=== PATIENT | female | born 1945 | race Caucasian/White ===

== ENCOUNTER 2021-03-02 16:37 | Emergency (ER) | payer MEDICARE, BC, SELFPAY ==
--- NOTE | ~2021-03-02 | XR_ITS ---
EXAMINATION: XR foot LT min 3V, XR ankle LT min 3V DATE: 03/02/2021 17:17 INDICATION: Lateral left foot and ankle pain post fall 9 days prior. TECHNIQUE: 1. Anteroposterior, mortise, additional oblique and lateral view of the left ankle were obtained. 2. Dorsoplantar, two oblique and lateral views of the left foot were obtained. COMPARISON: None. FINDINGS: Mild varus angulation at the fourth and fifth metatarsophalangeal joints. Alignment of the foot and a nkle is otherwise normal. No fracture or osteochondral lesion. Mild polyarticular osteoarthritis at t he left ankle and at multiple joints throughout the left foot. No ankle joint effusion. Mild soft tis thomas swelling about the lateral malleolus. IMPRESSION: 1. Soft tissue swelling at the lateral malleolus. No acute osseous abnormality. 2. 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 Reviewed, dictated and finalized at location A. IMPRESSION: 1. Soft tissue swelling at the lateral malleolus. No acute osseous abnormality. 2. 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
[2021-03-02 16:52] VITALS: BP 157/66; PULSE 79; RESP 16; TEMP 36.9; O2SAT 99
[2021-03-02 16:56] VITALS: BP 157/66; PULSE 79; RESP 16; TEMP 36.9; O2SAT 99
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
== END 2021-03-02 18:00 | disposition home or self-care (01) ==
PROVIDERS: Emergency Provider Registered Nurse; PCP Internal Medicine
DX: S93.602A Unspecified sprain of left foot, initial encounter (principal); W17.89XA Other fall from one level to another, initial encounter; M19.072 Primary osteoarthritis, left ankle and foot; M81.0 Age-related osteoporosis without current pathological fracture
CPT/HCPCS: 73610; 73630; 99203; G0463

== ENCOUNTER 2023-02-07 13:44 | Emergency (ER) | payer MEDICARE, BC, SELFPAY ==
[2023-02-07 13:53] VITALS: BP 138/66; PULSE 72; RESP 12; TEMP 37.2; O2SAT 100
--- NOTE | 2023-02-07 14:01 | ED.SKABFB ---
HPI - Skin/Abscess/Foreign Bdy General Chief complaint: Skin/Abscess/Foreign Body Stated complaint: Insect Bite Time Seen by Provider: 02/07/23 14:01 Source: patient Mode of arrival: ambulatory Limitations: no limitations History of Present Illness HPI narrative: 78-year-old female presents with complaint of redness, swelling, itching to right lower leg for approximately 4-5 days. Reports that she was stung by a wasp. Saw her primary care physician on Wednesday. Was started on Keflex. Has been on antibiotic less than 48 hours. Reports that she continues to have swelling, redness and itching. Patient concerned that antibiotic is not working and infection is getting worse. Took 1 dose of Benadryl. Is not taking any over the counter medications to treat allergic/histamine reaction. Afebrile. Ambulatory with steady gait. All systems reviewed and negative except as noted above. Related Data Home Medications Medication Instructions Recorded Confirmed alendronate 70 mg tablet 70 tablet PO DAILY 09/22/22 02/07/23 aspirin 81 mg tablet,delayed 81 mg PO DAILY 09/22/22 02/07/23 release (Adult Aspirin Regimen) biotin 1,000 mcg chewable tablet 1,000 mcg PO DAILY 09/22/22 02/07/23 lactobacillus combination no.9 4 4,000 mmu cells PO DAILY 09/22/22 02/07/23 billion cell capsule (Adult 50 Plus Probiotic) Allergies Allergy/AdvReac Type Severity Reaction Status Date / Time Sulfa (Sulfonamide AdvReac Unknown Unknown Verified 02/07/23 13:51 Antibiotics) Review of Systems Review of Systems: CONSTITUTIONAL: Denies fever, chills, or sweats. EYES: Denies visual changes, redness, or discharge. ENT: Denies rhinorrhea, congestion, sore throat, or otalgia. CARDIOVASCULAR: Denies chest pain, palpitations, or edema. RESPIRATORY: Denies cough or dyspnea. GASTROINTESTINAL: Denies abdominal pain, nausea, vomiting, or diarrhea. GENITOURINARY: Denies dysuria or hematuria. SKIN: Reports wasp sting to right lower leg with redness, swelling and itching. MUSCULOSKELETAL: Denies back pain, joint pain, or myalgia. NEUROLOGIC: Denies headache, numbness, or weakness. PSYCHIATRIC: Denies anxiety or depression. All other systems reviewed are negative, except as documented in HPI. [facility] Past Medical History Medical History Osteopenia Surgical History Surgical History H/O: hysterectomy Family History Family History Father Hypertension Cerebrovascular accident Mother Hypertension Cerebrovascular accident Social History Social History Smoking status: Never smoker Alcohol intake: current Alcohol use details: rare social Substance use: never Lack of Transportation: No Lack of Food: Never True Current Housing: I Have Housing Concerned About Future Housing: No Difficulty Paying Gas/Electric Bills: No Difficulty Paying for Meds: No Currently Unemployed: No Education: Associate Degree Difficulty w/ Childcare or Family Care: No Living arrangements: with family Occupation/Education: retired Gender identity (if verbalized by the patient): Female Comments At time of signature, agree with nursing past medical, surgical, social and family history. There is no relevant family history pertinent to the presenting complaint. Exam Narrative: GENERAL: This is a well-nourished, well-developed patient, in no apparent distress. HEAD: normocephalic, atraumatic. EYES: PERRL. Sclera clear/white. Vision is grossly intact. EARS: External ears normal NOSE: External nose normal NECK: Neck supple, non-tender without lymphadenopathy, masses or thyromegaly. CARDIOVASCULAR: Regular rate and rhythm without murmurs, gallops, or rubs. RESPIRATORY: Clear to auscultation. Breath sounds equal bilat
== END 2023-02-07 14:15 | disposition home or self-care (01) ==
PROVIDERS: Emergency Provider Nurse Practitioner Family; PCP Internal Medicine
DX: T63.461A Toxic effect of venom of wasps, accidental (unintentional), initial encounter (principal); M85.80 Other specified disorders of bone density and structure, unspecified site
CPT/HCPCS: 99213; G0463

== ENCOUNTER 2024-08-09 11:24 | Outpatient (CLI) | payer MEDICARE, BC, SELFPAY ==
[2024-08-09 11:43] LABS: Hematocrit 35.6 % (37.0-47.0); Hemoglobin 11.5 g/dL (12.0-15.0); Mean Corpuscular HGB Conc 32.3 g/dl (32-36); Mean Corpuscular Hemoglobin 30.2 pg (26-34); Mean Corpuscular Volume 93.4 fl (80-100); Mean Platelet Volume 9.2 fl (7.4-10.4); Platelet Count Result 203 k/mm3 (150-375); Red Blood Count 3.81 M/mm3 (4.2-5.4); Red Cell Distribution Width 13.1 % (11.5-14.5); White Blood Count 3.9 K/mm3 (4.5-10.0)
[2024-08-09 12:17] LABS: Alanine Aminotransferase 22 U/L (6-35); Albumin Level 4.7 g/dL (3.5-5.1); Alkaline Phosphatase 47 U/L (38-126); Anion Gap 8 mmol/L (4-12); Aspartate Amino Transferase 30 U/L (14-36); Bilirubin,Total 0.7 mg/dL (0.2-1.3); Blood Urea Nitrogen 32 mg/dL (7-17); Calcium 9.8 mg/dL (8.4-10.2); Carbon Dioxide 30 mmol/L (22-30); Chloride 102 mmol/L (98-107); Estimated Glomerular Filt Rate > 60; Glucose 90 mg/dL (65-110); Lactate Dehydrogenase 210 U/L (120-246); Potassium 4.4 mmol/L (3.4-5.0); Sodium 140 mmol/L (137-145)
[2024-08-09 13:25] LABS: Folic Acid > 20.0 ng/mL (2.76->20)
[2024-08-09 13:42] LABS: Iron 66 ug/dL (37-170)
[2024-08-09 13:55] LABS: Percent Iron Saturation 21 % (20-50)
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
--- OUTSIDE RECORDS SUMMARY | 2024-08-10 23:55 | XMS_ITS | Data Portability ---
Author Organization [place] - [facility], Main Office Address [address] [place] [address] Care Team Providers Care Junior Electrical Engineer Name Role Phone BINTA MOSES Primary Care Provider [phone] JENNYFER BINTA Referring Provider [phone] Assessment No assessment recorded. Plan of Treatment Reminders Order Date Submit Date Provider Last Modified By Organization Details Last Modified Time Details Appointments None recorded. Lab vitamin D, 25-hydroxy , total, serum 2022 023 [email or web address] [facility], 2022 Krist[address] Espinoza, [address], [place], [address], 17:52:56 lipid panel, serum 2022 023 [email or web address] [facility], 2022 Kristopher Espinoza, [address], [place], [address], 3 17:52:55 CMP, serum or plasma 2022 023 [email or web address] [facility], 2022 Krist[address] Esp[address]za, [address], [place], [address], 17:52:55 CBC w/ auto diff 2022 023 [email or web address] [facility], 2022 Kristopher Espinoza, [address], [place], [address], 17:52:55 unlisted lab - T4, free 2022 023 [email or web address] [facility], 2022 Kristopher Espinoza, [address], [place], [address], 10/23/202 3 17:52:56 TSH, ultra-sens itive, serum 2022 023 [email or web address] Horowitz, 2022 Kristopher Espinoza, [facility] [address], [place], [address], 3 17:52:56 vitamin D, 25-hydroxy , total, serum 2023 024 kanwal Horowitz, 2022 Kristopher Espinoza, [address], [place], [address], 4 14:44:00 lipid panel, serum 2023 024 shira Horowitz, 2022 Kristopher Espinoza, [address], [place], [address], 4 14:51:44 CMP, serum or plasma 2023 024 shira Horowitz, 2022 Kristopher Espinoza, [address], [place], [address], 4 14:51:45 magnesium, serum or plasma 2023 024 kanwal Horowitz, 2022 Kristopher Espinoza, [address], [place], [address], 4 14:44:00 vitamin B12, serum 2023 024 kanwal Horowitz, 2022 Kristopher Espinoza, [address], [place], [address], 4 14:44:00 CBC w/ auto diff 2023 024 [email or web address] Horowitz, 2022 Kristopher Espinoza, [address], [place], [address], 4 14:44:00 Referral None recorded. Procedures None recorded. Surgeries None recorded. Imaging None recorded. Medication Orders methylpred nisolone 4 mg tablets in a dose pack 2023 024 MARYURI wSeeney [facility] [address], [address] [facility], [place], [address], 14:52:38 Patient TargetsNo targets recorded. Patient Instructions Encounter Date Encounter Id Patient Instructions Last Modified By Organization Details Last Modified Time 04/02/2023 [id number] dementia rating scale-2* [email or web address] Not available 04/02/2023 11:42:35 alcohol misuse* Not available 04/02/2023 11:42:34 depression screening* Not available 04/02/2023 11:42:35 multi-dimensiona l health assessment questionnaire* [email or web address] Not available 04/02/2023 11:42:34 Personalized a lth Plan and Screening Recommendations Advance Directives - Do you have one? Yes Advance Directives - Do we have your advance directive on file in your health record? Primary Prevention/Interven tion (prevents or decreases the chance of common diseases from occurring) Smoking Risk: Non Smoker Alcohol Misuse Screening: Negative Weight: Appropriate Physical activity: Appropriate physical activity Nutrition: Good Average Fall Risk (screened today): Low Vaccines Pneumococcal: Ordered Recommended today Recommended today, but you have declined No further needed Influenza: Chronic Disease Risks Stroke: Low Risk I have no recommendations Heart Attack: Low risk I have no recommendations Clogging of the Arteries: Low risk I have no recommendations Diabetes: Low Risk I have no recommendations Secondary Prevention/Interven tion (detects treatable diseases before they may cause symptoms, disability, or ) Breast Cancer Screening with mammogram: Cervical/Uterine/Ov james Cancer Screening: Osteoporosis Screening: Date Screening Last Performed: Colon Cancer Screening: Colonoscopy Date Screening Last Performed: __2015___ Eye Disease Screening: Dementia Risk: Low I have no recommendations Depression Screening: Negative [email or web address] Not available 04/02/2023 11:32:30 Medicare [facility] s evaluation risk assessment stable. Instructed patient on the administration of the influenza, COVID booster as well as possibly RSV virus immunization. Clinically is doing well. No interval complaints any new problems. Is up-to-date on her pneumococcal immunizations. Will continue on current Rx check blood work consisting of CBC, CMP, lipid, thyroid and vitamin-D level. Continue on current Rx and follow-up in six months Portions of the record may have been created with voice recognition software. Occasional wrong-word or ? s ound-a-like? substitutions may have occurred due to the inherent limitations of voice recognition software. Read the chart carefully and recognize, using context, where substitutions have occurred. Next Appt: 6 Months Approximate Date: 09/29/2023 [email or web address] Not available 04/02/2023 11:42:10 10/01/2023 [id number] Follow-up osteoporosis. Clinically stable. Had blood work back last March which looked adequate. No interval complaints of any new problems. Will continue on current Rx and follow-up in six months. Portions of the record may have been created with voice recognition software. Occasional wrong-word or ? s ound-a-like? substitutions may have occurred due to the inherent limitations of voice recognition software. Read the chart carefully and recognize, using context, where substitutions have occurred. [email or web address] Not available 10/01/2023 12:04:25 02/14/2024 [id number] osteoporosis education [email or web address] Not available 02/14/2024 15:03:58 pain management [email or web address] Not available 02/14/2024 15:03:58 03/30/2024 [id number] Follow up for GE RD, DJD and osteoporosis all stable. Check blood work CBC,CMP,Lipid, Vitamin D, thyroid, Magnesium and B12. Continue on current Rx. Trial of a MDP for the arthritis in the right hand. Check back in six months. Next Appointment: 6 Months Approximate Date: 09/26/2024 Portions of the record may have been created with voice recognition software. Occasional wrong-word or ? s ound-a-like? substitutions may have occurred due to the inherent limitations of voice recognition software. Read the chart carefully and recognize, using context, where substitutions have occurred. [email or web address] Not available 03/30/2024 14:50:07 Reason for Referral None Reported. Results Created Date Observation Date Name Description Value Unit Range Abnormal Flag Note LastModifiedBy Organization Detail LastModifiedTime 08/06/19 24 08/05/2023 MAMMO , scree nisha, digit al, bilat eral No observ ation record ed. [address], [place], [address], 08/06/2023 17:11:12 10/19/19 24 04/12/2023 bone densi ty No observ ation record ed. Not Available 2023 14:31:33 Result Notes None recorded. Problems Name Problem SNOMED Code Status Onset Date Resolution Date Notes Provider Name and Address Organization Details Recorded Time Closed fracture of cuboid bone of left foot 3682926276241 9105 Active 2020 Not Available [facility] 3 14:47:31 Chest pain 13741293 Active Not Available [facility] 3 14:47:31 Screening for cardiovasc ular system disease Active 2021 Not Available [facility] 3 14:47:31 Postartifi cial menopausal syndrome 77698062 Active Not Available [facility] 3 14:47:32 Osteoarthr itis 817823491 Active Not Available [facility] 3 14:47:32 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 Not Available [facility] 3 14:47:32 Osteoporos is 60139245 Active 2019 Not Available [facility] 3 14:47:32 Fatigue 00402688 Active Not Available [facility] 3 14:47:32 Plantar fasciitis of left foot 2358920388167 9101 Active 2022 Binta Moses MD [address], [place], [address] , [employer] 3 12:36:19 Impacted cerumen in left ear 3262664471517 101 Active 2022 Binta Moses MD [address], [place], [address] , [employer] 3 12:36:26 Gastroesop hageal reflux disease 483628481 Active 2023 Binta Moses MD [address], [place], [address] , [employer] 4 14:44:33 Anemia 268309364 Active 2023 Romina Brothers CMA null, [facility] 4 14:58:29 Acute sinusitis 03703543 Active 2023 HA Enamorado, [facility] 4 10:49:01 Problem Notes None recorded. Procedures Surgical History Date Name Laterality Status Provider Name and Address Organization Details Recorded Time 02/14/20 24 Chronic care management services completed Tammie Dias RN [facility] 02/14/2024 14:02:43 12/16/19 24 Chronic care management services completed Tammie Dias RN [facility] 12/16/2023 16:19:11 04/02/20 23 Medicare Wellness CPT Code, subsequent completed Oumou Campbell RN [facility] 04/02/2023 11:27:00 09/26/19 16 Date of Last Colonoscopy completed Not Available [facility] 09/16/2022 14:45:05 Imaging Results Imaging Date Name Status LastModified by Organiz ation Details LastModified Time 08/05/2023 MAMMO, screening, digital, bilateral completed [email or web address] [address], [place], [address], 08/06/2023 17:11:12 04/12/2023 bone density completed [email or web address] Information not available 10/19/2023 14:31:33 Procedure Notes None recorded. Medical Equipment None Reported. Allergies Allergen ID Allergen Name Allergen Category Reaction Reaction Severity Criticality Documentation Date Start Date Code Code System Note Provider Name and Address Organization Details Recorded Time 31320 Substance with sulfonami de structure and antibacte rial mechanism of action (substanc e) medicatio n Not available Not available Not available 09/16/2022 67941 8003 SNOMED Not Available [facility] 3 14:49:29 90499 wasp venoms environme nt Not available Not available Not available 12/16/2023 [id number] RxNorm KVNG Yanez, [facility] 4 15:40:56 Medications Name Sig Start Date Stop Date Status Note LastModified by Organization Details LastModified Time amoxicillin 500 mg capsule TAKE 1 CAPSULE BY MOUTH THREE TIMES DAILY UNTIL GONE 09/30 completed Not Available Not Available Not Available azithromyci n 250 mg tablet TAKE 2 TABLETS BY MOUTH ON DAY 1, AND THEN TAKE 1 TABLET BY MOUTH ONCE A DAY ON DAY 2 THROUGH DAY 5 09/30 completed Not Available Not Available Not Available ibuprofen 800 mg tablet TAKE 1 TABLET BY MOUTH EVERY 6 HOURS NEEDED FOR PAIN active Not Available Not Available No t Available prednisone 20 mg tablet TAKE 2 TABLETS BY MOUTH ONCE DAILY FOR 3 DAYS THEN 1 ONCE DAILY FOR 4 DAYS 09/30 completed Not Available Not Available Not Available alendronate 70 mg tablet TAKE 1 TABLET BY MOUTH ONCE A WEEK (EVERY 7 DAYS) ON AN EMPTY STOMACH BEFORE OTHER MEDS, TAKE WITH A 8OZ OF WATER, STAY UPRIGHT FOR 30 MINUTES active Not Available Not Available No t Available Demian Low Dose Aspirin 81 mg tablet,jyothi yed release Take 1 tablet every day by oral route. 2013 active Not Available Not Available Not Avai lable triamcinolo ne acetonide 0.1 % topical cream APPLY TOPICALLY TO THE AFFECTED AREA TWICE DAILY FOR POISON SOLEDAD 12/15 completed Not Available Not Available Not Available ciclopirox 8 % topical solution APPLY TO LEFT GREAT TOENAIL PLATE AND RIGHT GREAT TOENAIL PLATE EVERY DAY 12/15 completed Not Available Not Available Not Available FiberCon 625 mg tablet Take 1 tablet every day by oral route. 03/08 completed Not Available Not Available Not Available prednisolon e acetate 1 % eye drops,suspe nsion INSTILL 1 DROP INTO RIGHT EYE 4 TIMES DAILY FOR 3 DAYS 03/20 completed Not Available Not Available Not Available cephalexin 500 mg capsule TAKE 1 CAPSULE BY MOUTH EVERY 6 HOURS 12/15 completed Not Available Not Available Not Available hydroxyzine HCl 25 mg tablet TAKE ONE TABLET BY MOUTH THREE TIMES A DAY NEEDED 09/30 completed Not Available Not Available Not Available clobetasol 0.05 % topical ointment APPLY TO THE AFFECTED AREA(S) TOPICALLY TWICE DAILY 12/15 completed Not Available Not Available Not Available methylpredn isolone 4 mg tablets in a dose pack TAKE BY MOUTH DIRECTED ON INSIDE OF PACKAGE active Not Available Not Available No t Available Vitamin D2 1,250 mcg (50,000 unit) capsule Take 1 capsule every week by oral route. 12/15 completed Not Available Not Available Not Available Cortisporin -TC 3.3 mg-3 mg-10 mg-0.5 mg/mL ear drops,suspe nsion Instill 5 drops 4 times a day by otic route for 7 days. active Not Available Not Available No t Available hydroxyzine HCl 10 mg tablet TAKE 1 TABLET BY MOUTH EVERY 6 TO 8 HOURS NEEDED FOR ITCHING 09/30 completed Not Available Not Available Not Available ipratropium bromide 21 mcg (0.03 %) nasal spray USE 2 SPRAY(S) IN EACH NOSTRIL TWICE DAILY 12/15 completed Not Available Not Available Not Available amoxicillin 875 mg-potassiu m clavulanate 125 mg tablet TAKE 1 TABLET BY MOUTH EVERY 12 HOURS FOR 7 DAYS active Not Available Not Available No t Available Multivitami n 50 Plus tablet Take 1 tablet every day by oral route. 2017 active Not Available Not Available Not Avai lable fiber 08/31 completed Not Available Not Available Not Available Os-Mauricio 500 + D3 twice a day 2013 active Not Available Not Available Not Avai lable Salina 3 1000mg three times a day 2013 active Not Available Not Available Not Avai lable Est[employer] (w-vitamins ) 2013 active Not Available Not Available Not Avai lable Probiotic 10 billion cell capsule Take 1 capsule every day by oral route. 2017 active Not Available Not Available Not Avai lable Probiotic 08/31 completed Not Available Not Available Not Available lidocaine 5 % topical ointment APPLY OINTMENT EXTERNALL Y EVERY 3 HOURS NEEDED FOR PAIN 12/15 completed Not Available Not Available Not Available [employer] COVID-19 Ag Self Test kit Use as Directed on the Package 09/18 completed Not Available Not Available Not Available Vitals Date Recorded Body height Body mass index (BMI) Body weight Body temperature Heart rate Oxygen saturation Oxygen saturation in Arterial blood by Pulse oximetry Systolic blood pressure Diastolic blood pressure Provider Name and Address Organization Details Last Updated DateTime 3 154.94 cm 19.8 kg/m2 77643.2 g 97.1 [degF] 70 /min 95 % 95 % 124 mm[Hg] 74 mm[Hg] Chantell Cortes MA [facility] [employer] [facility] 3 11:18:39 Date Recorded Body height Body mass index (BMI) Body weight Heart rate Body temperature Oxygen saturation Oxygen saturation in Arterial blood by Pulse oximetry Systolic blood pressure Diastolic blood pressure Provider Name and Address Organization Details Last Updated DateTime 4 154.94 cm 19.8 kg/m2 46108.2 g 68 /min 97 [degF] 98 % 98 % 122 mm[Hg] 60 mm[Hg] Cece Nick [place] [email or web address] [facility] 4 11:36:16 Date Recorded Body height Provider Name an d Address Organization Details Last Updated DateTime 12/14/2023 154.94 cm Tammie Dias RN [facility] [employer] [facility] 12/16/2023 15:40:07 Date Recorded Body height Provider Name an d Address Organization Details Last Updated DateTime 02/14/2024 154.94 cm Tammie Dias RN [facility] [employer] [employer] [facility] 02/14/2024 13:48:50 Date Recorded Body height Body weight Heart rate Body temperature Oxygen saturation Oxygen saturation in Arterial blood by Pulse oximetry Systolic blood pressure Diastolic blood pressure Provider Name and Address Organization Details Last Updated DateTime 4 154.94 cm 05108.2 g 70 /min 97.6 [degF] 98 % 98 % 132 mm[Hg] 70 mm[Hg] YUSRA Kaufman [facility] [employer] [employer] [facility] 4 14:38:13 Social History Question Answer Notes LastModified by Organization Details LastModified Time Tobacco Smoking Status Never Smoker Not Available [facility] 09/16/2022 14:45:01 Do You Have An Advance Directive? Yes [email or web address] Information not available 12/16/2023 What Is Your Level Of Alcohol Consumption? Occasional [id number] Information not available 09/16/2022 Are You Blind Or Do You Have Difficulty Seeing? No MIGRATION.300026 Information not available 09/16/2022 Is Blood Transfusion Acceptable In An Emergency? Yes [email or web address] Information not available 12/16/2023 What Is Your Level Of Caffeine Consumption? None [email or web address] Information not available 12/16/2023 In The 14 Days Before Symptom Onset, Have You Had Close Contact With A Laboratory-confi rmed COVID-19 While That Case Was Ill? No MIGRATION.0301 [id number] Information not available 09/16/2022 In The 14 Days Before Symptom Onset, Have You Had Close Contact With A Person Who Is Under Investigation For COVID-19 While That Person Was Ill? No MIGRATION.0301 [id number] Information not available 09/16/2022 Are You Currently Employed? No [email or web address] Information not available 12/16/2023 Are You Deaf Or Do You Have Serious Difficulty Hearing? No MIGRATION.0301 [id number] Information not available 09/16/2022 What Type Of Diet Are You Following? REGULAR MIGRATION.0301 [id number] Information not available 09/16/2022 What Is The Highest Grade Or Level Of School You Have Completed Or The Highest Degree You Have Received? [id number] [email or web address] Information not available 12/16/2023 How Many Days Of Moderate To Strenuous Exercise, Like A Brisk Walk, Did You Do In The Last 7 Days? 7 [email or web address] Information not available 12/16/2023 Have There Been Any Changes To Your Family Or Social Situation? No MIGRATION.0301 [id number] Information not available 09/16/2022 What Is The Fluoride Status Of Your Home? Unknown MIGRATION.0301 [id number] Information not available 09/16/2022 Are There Any Guns Present In Your Home? No MIGRATION.0301 342006 Information not available 09/16/2022 Do You Use Insect Repellent Routinely? Yes MIGRATION.0301 943150 Information not available 09/16/2022 Where Do You Live? [facility] [email or web address] Information not available 12/16/2023 Guns Present In The Home? No [email or web address] Information not available 04/02/2023 Are You Able To Care For Yourself? Yes [email or web address] Information not available 04/02/2023 Are You Blind Or Do Yo Have Difficulty Seeing? No [email or web address] Information not available 04/02/2023 Are You Deaf Or Do You Have Serious Difficulty Hearing? No [email or web address] Information not available 04/02/2023 Live Alone Of With Others? With Others [email or web address] Information not available 04/02/2023 Do You Have A Medical Power Of Filter Washer And Presser? Yes Daughter [email or web address] Information not available 12/16/2023 What Was The Date Of Your Most Recent Tobacco Screening? 04/02/2023 [email or web address] Information not available 04/02/2023 How Many Children Do You Have? 3 Information not available 12/16/2023 Do You Have Any Pets? No [email or web address] Information not available 12/16/2023 What Is Your Relationship Status? MIGRATION.0301 [id number] Information not available 09/16/2022 Do You Use Your Seat Belt Or Car Seat Routinely? Yes MIGRATION.0301 997240 Information not available 09/16/2022 Are You Sexually Active? Yes Information not available 12/16/2023 Do You Have Smoke And Carbon Monoxide Detectors In Your Home? Yes MIGRATION.0301 767046 Information not available 09/16/2022 Are You Passively Exposed To Smoke? No MIGRATION.0301 369530 Information not available 09/16/2022 Are There Any Smokers In Your House? No MIGRATION.0301 840436 Information not available 09/16/2022 Do You Feel Stressed (tense, Restless, Nervous, Or Anxious, Or Unable To Sleep At Night)? [id number] [email or web address] Information not available 12/16/2023 Do You Use Any Illicit Or Recreational Drugs? No Information not available 12/16/2023 Do You Use Sunscreen Routinely? Yes MIGRATION.0301 [id number] Information not available 09/16/2022 Have You Recently Traveled Abroad? Yes 1 Year Ago [email or web address] Information not available 12/16/2023 Do You Have Any Dietary Restrictions? No MIGRATION.0301 267007 Information not available 09/16/2022 Sex: Female Functional Status Question Answer Note LastModified by Organizat ion Details LastModified Time Do you have difficulty walking or climbing stairs? No MIGRATION.[id number] 026 Information not available 09/16/2022 Do you have transportation difficulties? No MIGRATION.5723371 026 Information not available 09/16/2022 Are you able to walk? YESWOREST [email or web address] Information not available 04/02/2023 Do you have difficulty doing errands alone? No MIGRATION.5149712 026 Information not available 09/16/2022 Are you able to care for yourself? Yes MIGRATION.[id number] 026 Information not available 09/16/2022 Do you have difficulty dressing or bathing? No MIGRATION.7978453 026 Information not available 09/16/2022 What is your exercise level? Moderate MIGRATION.0942825 026 Information not available 09/16/2022 Mental Status Question Answer Note LastModified by Organizat ion Details LastModified Time Do you have difficulty concentrating, remembering or making decisions? No MIGRATION.[id number] 6 Information not available 09/16/2022 Family History Nothing Reported Notes:Mother 89 from [place] D, HTN and CABG Father 92 from [facility] Medical History Condition Response NERVE DISEASE N BLINDNESS N RHEUMATIC FEVER N KIDNEY STONES N BLADDER PROBLEMS N MRSA N OTHER # 1 N POLIO N LUNG DISEASE/DISORDER N HISTORY OF DRUG ABUSE N RADIATION / CHEMOTHERAPY N COPD N Other # 2 N BLOOD DISEASES N EAR OR HEARING PROBLEMS N MUMPS N SHINGLES N BOWEL PROBLEMS N DEPRESSION (INCLUDING POST ) N FAILED BACK SYNDROME N STROKE/TIA N ULCERS N BENIGN PROSTATIC HYPERPLASIA N MEASLES N HYPOTENSION N MYOCARDIAL INFARCTION N OBESITY N GERD/NAUSEA N ANEURYSM N URINARY/BLADDER/KIDNEY PROBLEMS N CORONARY ARTERY DISEASE (CAD) N Do you have Advance directive? Y ADDICTION CONCERNS N Impotence N ENDOMETRIOSIS N USE OF BLOOD THINNERS N SKIN PROBLEMS N GASTROINTESTINAL DISORDER N PERIPHERAL VASCULAR DISEASE N MUSCLE,JOINT OR BONE PROBLEMS N GASTROINTESTINAL BLEEDING N BLOOD CLOTS N ASTHMA N CATARACTS Y Abdominal Pain N ERECTILE DYSFUNCTION N ARTERIAL INSUFFICIENCY N VARICOSITIES N GI PROBLEMS N Low Testosterone N INFERTILITY N AIDS/HIV N CHEMOTHERAPY / RADIATION N LIVER DISEASE N MALE HYPOGONADISM N HYPERTENSION N Deficiency N TOURETTE'S N ANXIETY DISORDER N BLOOD TRANSFUSION N ANEMIA/BLOOD DISORDER N CHRONIC EAR INFECTIONS N TUBERCULOSIS N GLAUCOMA N FOOT PROBLEM N DIVERTICULITIS N SLEEP APNEA N CHICKENPOX Y BACK INJECTIONS N ALLERGIES/HAYFEVER N INFECTIOUS DISEASE N PROSTATE N HEART ARRHYTHMIA N ESRD N INSOMNIA N HIGH CHOLESTEROL / HYPERLIPIDEMIA N EYE PROBLEMS N HYPERTHYROIDISM N PVD N EDEMA N CHRONIC PAIN SYNDROME N HYPOTHYROIDISM N CONSTIPATION N CAROTID BLOCKAGE N BACK / NECK PROBLEMS N HAVE YOU BEEN HOSPITALIZED OR SEEN IN [facility] IN THE PAST YEAR ? N ATHEROSCLEROSIS N BREAST PROBLEMS N DIALYSIS N POLYCYSTIC OVARIES N ECZEMA N OSTEOPOROSIS Y ARTHRITIS Y NO SIGNIFICANT PAST MEDICAL HISTORY N APPENDICITIS N DIABETES, TYPE N BAD TEETH N VON WILLIBRAND'S DISEASE N ENT N HEARTBURN / REFLUX N GI N AUTISM SPECTRUM DISORDER (ASD) N POST LAMINECTOMY SYNDROME N HEPATITIS / LIVER DISEASE N GOUT N SLEEP DISORDER N ALZHEIMER'S DISEASE N Brain Problems N DEMENTIA N HERPES N SEIZURES/EPILEPSY N HEADACHES/MIGRAINES N VASCULAR DISEASE N PACEMAKER N DIZZINESS N HEART DISEASE/HEART PROBLEMS N KIDNEY DISEASE N MULTIPLE SCLEROSIS N NEUROPSYCHOLOGICAL N CANCER: SPECIFY N CARDIAC ARRHYTHMIA N ATRIAL FIBRILLATION N Gall Stones N PULMONARY EMBOLISM N AUTOIMMUNE DISEASE N Gynecological History Statement/Question Response Date of Last Mammogram 06/03/2021 Date of Last Colonoscopy 09/26/2015 Most Recent Bone Density Obstetrics History GPAL:G 3 P 2 1 0 3 Type Value Full Term 2 Premature 1 Living 3 Total 3 Immunizations Vaccine Type Date Status Note Provider Nam e and Address Organization Details Recorded Time SARS-COV-2 (COVID-19) vaccine, UNSPECIFIED 3 [facility]21 influenza, unspecified formulation 3 completed Cece Romero [facility] 07/20/2023 00:23:47 RSV, recombinant, protein subunit RSVpreF, adjuvant reconstituted, 0.5 mL, PF 4 completed Romina Brothers CMA [facility] 09/01/2023 15:41:17 Tdap 4 completed Romina Brothers CMA [facility] 10/26/2023 12:45:35 influenza, unspecified formulation 4 completed YUSRA Kaufman [facility] 05/18/2024 17:22:23 COVID-19, mRNA, LNP-S, PF, angela-sucrose, 30 mcg/0.3 mL 4 [facility] 17:23:29 zoster, unspecified formulation 1 completed Not Available [facility] 09/16/2022 14:49:25 zoster, unspecified formulation 0 completed Not Available [facility] 09/16/2022 14:49:25 Influenza, split virus, trivalent, preservative 3 completed Not Available [facility] 09/16/2022 14:49:25 Influenza, split virus, quadrivalent, preservative 2 completed Not Available [facility] 09/16/2022 14:49:26 Influenza, split virus, quadrivalent, preservative 1 completed Not Available [facility] 09/16/2022 14:49:26 COVID-19 Non-US Vaccine, Product Unknown 1 completed Not Available [facility] 09/16/2022 14:49:26 COVID-19 Non-US Vaccine, Product Unknown 1 completed Not Available [facility] 09/16/2022 14:49:26 Pneumococcal conjugate PCV 13 5 completed Not Available [facility] 09/16/2022 14:49:26 Past Encounters Encounter ID Performer Location Encounter Start Date Encounter Closed Date Diagnosis/Indication Diagnosis SNOMED-CT Code Diagnosis ICD10 Code Diagnosis Note [id number] [facility] [place] [address] [place] [address] 03/11/2021 00:00:00 03/11/2021 12:16:59 [id number] [facility] [place] [address] [facility] [address] [place] [address] 03/17/2021 00:00:00 03/17/2021 15:09:40 [id number] [facility] [place] [address] [facility] [address] [place] [address] 04/14/2021 00:00:00 04/14/2021 13:19:19 [id number] [facility] [place] [address] [place] [address] 09/02/2021 00:00:00 09/02/2021 12:06:43 [id number] [facility] [place] [address] [place] [address] 03/20/2022 00:00:00 03/20/2022 11:47:50 [id number] Binta Moses MD [facility] [place] [address] [place] [address] y , [place] [address] 09/18/2022 11:20:18 09/18/2022 12:47:40 Osteoporosis 46539019 M81.0 Plantar fa sciitis of left foot 1608882785 9008874 M72.2 Impacted c erumen in left ear 8285340704 942926 H61.22 [id number] Binta Moses MD [facility] [place] [facility] [place] [address] [place] [address] y , [place] [address] 04/02/2023 11:17:47 04/02/2023 11:45:44 Adult health examination 297583951 Z00.00 Screening for disorder 178638334 Z13.9 Osteoporosis 72592181 M8 1.0 Screening for cardiovascular system disease 868115061 Z13.6 [id number] Binta Moses MD [facility] [place] [address] [place] [address] y , [place] [address] 10/01/2023 11:15:25 10/01/2023 12:08:40 Osteoporosis 46659131 M81.0 [id number] Binta Moses MD [facility] [place] [facility] [place] [address] [place] [address] y , [place] [address] 12/16/2023 15:35:12 12/17/2023 08:40:48 Osteoarthritis 171029393 M19.90 Osteoporosis 45538384 M8 1.0 [id number] Binta Moses MD [facility] [place] [facility] [address] [facility], [facility] [address] [place] [address] 02/14/2024 13:48:00 02/14/2024 15:04:02 Osteoarthritis 401266729 M19.90 Osteoporosis 37434315 M8 1.0 [id number] Binta Moses MD [facility] [place] [facility] [place] [address] [place] [address] y , [place] [address] 03/30/2024 14:20:20 03/30/2024 14:55:29 Osteoarthritis 363643126 M19.90 Osteoporosis 79010678 M8 1.0 Gastroesop hageal reflux disease 573904920 K21.9 Screening for cardiovascular system disease 075504115 Z13.6 Goals Section Goal Description Status Start Date LastModified by Organization Details LastModified Time Healthy Weight Maintain a healthy body weight as recommended by your care team Goal not achieved 12/16/19 24 Tammie Dias RN Information not available 02/14/2024 18:03:37 Health Concerns Section Related Observation LastModified by Organization Detai ls LastModified Time None Recorded Concern Status LastModified by Organization Details LastModified Time Osteoarthritis Active Tammie Dias RN Not Available 0 12/16/2023 20:05:13 Osteoporosis Active Tammie Dias RN Not Available 20:05:17 Advance Directives Directive Y: Payers Encounter Date Sequence Insurance Name Policy Number Policy Cardozo Covered Member ID Cardozo Member ID Guarantor Name 04/02/2023 1 [place] Ariella Guzman [id number] Ariella Guzman 04/02/2023 2 [place] 104 Ariella Guzman [id number] Ariella Guzman 10/01/2023 1 [place] Guz[place] [id number] Ariella Guzman 10/01/2023 2 [place] 104 Ariella Guzman [id number] Ariella Guzman 12/14/2023 1 [place] Guzman [id number] Ariella Guzman 12/14/2023 2 [place] 104 Ariella Guzman [id number] Ariella Guzman 02/14/2024 1 [place] Guzman [id number] Ariella Guzman 02/14/2024 2 [place] 104 Ariella Guzman [id number] Ariella Guzman 03/30/2024 1 [place] Guzman [id number] Ariella Guzman 03/30/2024 2 [place] 104 Ariella Guzman [id number] Ariella Guzman Notes Date Note Type Note Provider Name and Address Organization Details Recorded Time 3 text/html Patient Name: Ariella GuzmanDate Of Service: Wednesday ( 04.02.2023 ): 1945 Age: 78 There has been approximately a 1 lb weight loss since 09/18/2022. This represents approximately a .9% change in weight. Weight change attributable to lifestyle changes. Vital Signs:Blood Pressure: Sitting Rt. Arm 124/74Pulse: Sitting 70 /min and RegularRespirations: 12Height 61 in or 1.5 mWeight 105 lb or 47.6 kgBMI 19.8Temperature: 97.1 F or 36.2 CPulse Oximetry: 95 % at rest on no oxygen Chief Complaint: Addressed in HPI Problems or conditions discussed in the HPI were the only ones reviewed during the encounter.Only social and family history addressed in the HPI were reviewed during this encounter. A significant, separate E/M service was performed to evaluate the current and new problems. Attendant(s): NoneConstitutional and Systemic Symptoms: none Medication Reconciliation: from medication list. AnnotationsNegative mammogram from 07/29/2022 History of Present Illness Reviewed the findings of the preventative health visit. Addressed all areas with the patient, patient's family or caregivers. Preventative examinations and testing immunizations - vaccinations, colonic neoplasm screening, mammograms and DEXA Scan all reviewed and ordered where patient was amenable to the recommendations. Cognitive function was normal. Depression addressed and where necessary medications were adjusted or instituted. End of life and living will briefly discussed with patient and where these can be filled out and legally executed. Other blood and imaging studies were ordered if considered necessary. Other recommendations may be found in the encounter note. #1. osteoporosis. No new complaints of any additional back,hip or other musculoskeletal complaints related to the osteoporosis. No hx of any recent trauma. Currently taking OsCal-D and Fosamax. Has showed osteoporosis. The FRAX Score for Hip Fracture is NA hx osteoporosis FRAX score for major fractures NA hx of osteoporosisMedication List Reviewed and Reconciled 04/02/2023Multivitamin DailyAspirin 81 MG One DailyOs-mauricio D 500 MG One BidOmega-3 1000 MG One TidProbiotic One DailyFosamax 70 MG (TABLET - ORAL) One Tablet WeeklyADRs List Reviewed 04/02/2023Sulfa Drugs HivesVaccination and Prhorpbympii6260-46 Covid Booster Setqaz5421-67 Wramwnkz2262-64 Covid Ymztwn6270-15 Niadeoiyz4359-37 Prevnar 944425-54 Zostavax (shingles)2007- PneumovaxSurgical HistoryLt. Cataract, SYDNIE BSOPreventative Testing Confirmed by Our Dusqhjt1307/29/2022 MAMMOGRAM / DEXA SCAN09/10/2020 ALBUMIN 4.4 G/DL09/26/2015 COLONOSCOPY (10 YEARS) 09/25/2025Social HistoryDoes not smoke or drink. Retired from [employer].Family HistoryMother 89 from CAD, HTN and CABGFather 92 from [employer] Binta Moses MD [address] [facility], [facility] [address], [place], [address], [facility] 04/02/2023 11:42:39 4 text/html Patient Name: Ariella Bonilla Of Service: Wednesday ( 10.01.2023 ): 1945 Age: 78 Vital Signs:Blood Pressure: Sitting Rt. Arm 122/60Pulse: Sitting 68 /min and RegularRespiratory Rate: 12Height 61 in or 1.5 mWeight 105 lb or 47.6 kgBMI 19.8Temperature: 97 F or 36.1 CPulse Oximetry: 98 % at rest on no oxygen Chief Complaint: Addressed in HPI Problems or conditions discussed in the HPI were the only ones reviewed during the encounter.Only social and family history addressed in the HPI were reviewed during this encounter. Attendant(s): NoneConstitutional and Systemic Symptoms:none Medication Reconciliation: from medication list. AnnotationsNegative mammogram from 07/29/2022 History of Present Illness #1. osteoporosis. No new complaints of any additional back,hip or other musculoskeletal complaints related to the osteoporosis. No hx of any recent trauma. Currently taking OsCal-D and Fosamax. Has has had a recent DEXA scan done within the last year. The FRAX Score for Hip Fracture is NA hx osteoporosis FRAX score for major fractures NA hx of osteoporosis Active Medication ListMultivitamin DailyAspirin 81 MG One DailyOs-mauricio D 500 MG One BidOmega-3 1000 MG One TidProbiotic One DailyFosamax 70 MG (TABLET - ORAL) One Tablet Weekly Adverse Drug Reactions ReviewedSulfa Drugs Hives Vaccination and Nkfudyvjcgas9295-08 Covid Booster Fxayah6792-02 Ghmtimez0962-23 Covid Sygavp0222-92 Owprvcvgp5337-91 Prevnar 13 Uz5182-43 Zostavax (shingles)2008-04 Pneumovax Surgical Wwitzcl9707-75 Lt. Eqrtqawh3723-57 [facility] BSO Preventative Ntqfkqb6708/05/2023 MAMMOGRAM 5004/02/2023 ALBUMIN 4.6 G/DL N004/04/2021 DEXA SCAN09/26/2015 COLONOSCOPY (10 YEARS) 09/25/2025 Social HistoryDoes not smoke or drink. Retired from [employer]. Family HistoryMother 89 from CAD, HTN and CABGFather 92 from [employer] Binta Moses MD [address], [facility] [email or web address], [place], [address], [facility] 10/01/2023 12:04:44 4 text/html Care Management - GeneralReported bypatient.Notes:Pt managing chronic emery conditions well. Pt denies pain or any symptom r/t osteoporosis. Pt is compliant with medications. Pt goes for walks daily and denies any recent falls. Pt reports good quality of life. Denies depression, anxiety, or SI. Binta Moses MD [address], [place], [address], [facility] 12/16/2023 16:31:36 4 text/html Patient Name: Ariella Bonilla Of Service: March ( 03.30.2024 ): 1945 Age: 79 Vital Signs:Blood Pressure: Sitting Rt. Arm 132/70Pulse: Sitting 70 /min and RegularRespiratory Rate: 14Height 61 in or 1.5 mWeight 105 lb or 47.6 kgBMI 19.8Temperature: 97.6 F or 36.4 CPulse Oximetry: 98 % at rest on no oxygen Chief Complaint: Addressed in HPI Problems or conditions discussed in the HPI were the only ones reviewed during the encounter.Only social and family history addressed in the HPI were reviewed during this encounter. Attendant(s): NoneConstitutional and Systemic Symptoms:none Medication Reconciliation: from medication list. AnnotationsNegative mammogram from 07/29/2022 History of Present Illness #1. Hx of esophageal reflux currently stable. Hx of Complications: none The severity, duration and intensity of symptoms have improved. Frequency: most meals Treatment consists medications taken on no regular basis. Current therapy includes no medication. There has been no nausea, eructation, vomiting, hematemesis, dysphagia, velopharyngeal insufficiency and odynophagia. No change in he frequency or intensity of symptoms. Has had no melena. Has had no . Discussed use of H2 antagonists NA. #2. Hx of DJD stable. No interval complaints of any additional joint pain, swelling or redness. Joints most involved include hands, knees and hips. Medications: NSAIDS The DJD does interfere with ADL and ambulation. #3. osteoporosis. No new complaints of any additional back,hip or other musculoskeletal complaints related to the osteoporosis. No hx of any recent trauma. Currently taking OsCal-D and Fosamax. Has has had a recent DEXA scan done within the last year. The FRAX Score for Hip Fracture is NA hx osteoporosis FRAX score for major fractures NA hx of osteoporosis Active Medication ListMultivitamin DailyAspirin 81 MG One DailyOs-mauricio D 500 MG One BidOmega-3 1000 MG One TidProbiotic One DailyFosamax 70 MG (TABLET - ORAL) One Tablet Weekly Adverse Drug Reactions ReviewedSulfa Drugs Hives Vaccination and Gcfrfhfybkwp5545-78 Xru5979-70 Covid Booster Utjitu0533-42 Wjpylgvi6941-01 Covid Gefgzz5663-60 Tzkrbvugo2957-56 Prevnar 13 Km5895-53 Zostavax (shingles)2008-04 Pneumovax Surgical Gkwpqhb5478-89 Lt. Iqfjcgux3334-71 [facility] BSO Preventative Testing( ) 08/05/2023 Mammogram 08/05/2025( ) 04/12/2023 DEXA Scan 04/12/2025( ) 04/02/2023 Albumin 4.6 G/DL N( ) 09/26/2015 Colonoscopy (10 Years) 09/25/2025 Social HistoryDoes not smoke or drink. Retired from [employer]. Family HistoryMother 89 from CAD, HTN and CABGFather 92 from JOYA Moses MD [address] [facility], [facility] [address], [place], [address], [facility] 03/30/2024 14:50:20 OBGyn Episode No OBEpisode recorded.
--- OUTSIDE RECORDS SUMMARY | 2024-08-10 23:55 | XMS_ITS | Referral Summary ---
Author Organization [facility] Address [address] [place] [address] Care Team Providers Care Well Puller Head Name Role Phone Vincent Moses MD Primary Care Provider [phone] Source Comments [facility],non-owned Affiliates and Associated Physician Practices is amultiple site organization consisting of ambulatory clinics and hospital sitesin [place], [place], [place] and [place]. This disclosure is being madepursuant to the Care Everywhere program and may not contain all information available regarding this patient. Last updated 18.[facility] Allergies Active Allergy Reactions Criticality Noted Date Comments Sulfa Drugs Unknown 12/30/2012 Unknown of drug reaction. Medications * Be aware that medications may not be up to date on this document. Alwaysverify current medications with the patient. Medication Sig Dispensed Refills Start Date End Date Status hydrocodone-acetaminop hen (LORTAB) 7.5-500 MG tablet Take 1 Tab by mouth every 4 hours as needed for Pain. 20 Tab 0 12/30/2012 Active naproxen (NAPROSYN) 500 MG tablet Take 1 Tab by mouth 2 times daily as needed for Pain. 14 Tab 0 12/30/2012 Active Social History Tobacco Use Types Packs/Day Years [...] Mass Index 20.85 12/30/2012 6:13 PM CDT Plan of Treatment Not on file Care Teams Well Puller Head Relationship Specialty Start Date End Date Vincent Moses MD PCP - General Internal Medicine 12/30/12
--- OUTSIDE RECORDS SUMMARY | 2024-08-10 23:55 | XMS_ITS | Clinical Summary ---
Author Organization [facility] [employer] Address [address] [facility] [place] [address] Care Team Providers Care Clean Room Technician Name Role Phone Vincent Moses MD Primary Care Provider [phone] Source Comments [facility] [employer],non-owned Affiliates and Associated Physician Practices is amultiple site organization consisting of ambulatory clinics and hospital sitesin [place], [place], [place]. This disclosure is being madepursuant to the Care Everywhere program and may not contain all information available regarding this patient. Last updated 18.[facility] [employer] Allergies Active Allergy Reactions Criticality Noted Date [...] 12/30/2012 6:13 PM CDT Plan of Treatment Health Maintenance Due Date Last Done Comments BONE DENSITY TESTING 1945 MEDICARE AWV ? 12 MONTHS 1945 HEPATITIS C SCREENING 01/02/1964 DTAP/TDAP/TD VACCINES (1 - Tdap) 1965 PNEUMOCOCCAL VACCINE 50+ (1 of 1 - PCV) 01/07/1996 ZOSTER VACCINE (1 of 2) 01/07/1996 Respiratory Syncytial Virus (RSV) Vaccine Pt: or over 60 yrs (1 - 1-dose 75+ series) 2021 COVID-19 VACCINE ( - 2023-2 5 season) 2024 INFLUENZA VACCINE (#1) 2024 DEPRESSION SCREENING 07/19/2024 HEPATITIS B VACCINE Aged Out No longe r eligible based on patient's age to complete this topic HIB VACCINE Aged Out No longer eligi ble based on patient's age to complete this topic HPV VACCINE Aged Out No longer eligi ble based on patient's age to complete this topic MENINGOCOCCAL (Group B) VACCINE Aged Out No longer eligible based on patient's age to complete this topic MENINGOCOCCAL VACCINE Aged Out No laverne mayra eligible based on patient's age to complete this topic Care Teams Clean Room Technician Relationship Specialty Start Date End Date Vincent Moses MD PCP - General Internal Medicine 12/30/12
--- OUTSIDE RECORDS SUMMARY | 2024-08-10 23:55 | XMS_ITS | Clinical Summary ---
Author Organization [facility] Address [address] [place] [address] Phone Care Team Providers Care Radiologic Technologist Mammogram Name Role Phone Vincent Moses MD Primary Care Provider [phone] Allergies Active Allergy Reactions Criticality Noted Date Comments Erythromycin Unknown Low 07/10/2009 MOTHER TOLD HER MYCIN DRUG Sulfa (Sulfonamide Antibiotics) Unknown 09/27/2023 Sulfasalazine Unknown Low 12/30/2012 Mother told her Medications aspirin (JAMEEL) 81 mg Oral Tab Take 81 mg by mouth daily. Active alendronate (Fosamax) 70 mg tabletIndication s:Age-related osteoporosis without current pathological fracture Take 1 Tablet (70 mg) by mouth every 7 days. empty stomach before other meds,with 8oz of water, stay upright 30 min 13 Tablet 3 09/28/19 24 Active MULTIVITAMIN ORAL Take by mouth. Activ e L. acidophilus/L. rhamnosus (PROBIOTIC ORAL) Take by mouth. Active CALCIUM CARBONATE ORAL Take by mouth. Active KRILL OIL ORAL Take by mouth. Active collagen/biotin/ ascorbic acid (COLLAGEN 1500 PLUS C ORAL) Take by mouth. Ac tive multivitamin with minerals (HAIR,SKIN AND NAILS ORAL) Take by mouth. Act rosemarie polyethylene glycol 3350 (Miralax) 17 gram/dose Powder Take by mouth daily. Dissolve in 8 ounces of fluid and drink entire liquid Active polyethylene glycol 3350 (MIRALAX) 17 gram/dose Powder Take 17 Grams by mouth daily Dissolve in 8 ounces of fluid and drink entire liquid . 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 Osteopenia 08/26/2011 LMP 1996 SYDNIE/BSO 07/10/2009 Overview (07/11/2009): myoma Postmenopausal HRT (hormone replacement therapy) Resolved Problems Problem Noted Date Diagnosed Date Resolved Date History of Cryosurgery of Cervix 07/11/2009 08/31/2012 Cervicitis 08/31/2012 Encounters Date Type Department Care Team Description 08/09/2024 10:30 AM [employer] WORKER Office Visit [facility] Oncology and Hematology - [place] [address] [address] Chetan Joel MD Chronic anemia (Primary Dx) from Last 3 Months Immunizations Immunization Administration Dates Next Due (AREXVY)(60 YR UP) RSV, BRENDA MBINANT, PROTEIN SUBUNIT RSVPREF, ADJUVANT RECONSTITUTED, 0.5 ML, PF 07/28/2023 (PFIZER)(12 YR UP) COVID-19 VACCINE - EMERGENCY USE AUTHORIZATION, MRNA, [id number](PF) 30 MCG/0.3 ML IM SUSP 04/14/2023,09/15/2020,08/20/2020 (PREVNAR 13)(6 WKS UP) PNEUM OCOCCAL CONJUGATE (PCV13) 0.5 ML, IM 09/04/2014 (SHINGRIX)(50 YRS UP) ZOSTER VACCINE RECOMBINANT, 0.5 ML, IM 10/25/2020,06/27/2020 INFLUENZA VACCINE QUADRIVALENT 6 MOS UP IM 04/21,05/07/2021 INFLUENZA VACCINE QUADRIVALE NT ADJ 65 YR UP PF IM 03/20/2020 Influenza Seasonal Unspecifi ed Formulation IM 04/20/2013 Influenza Vaccine High Dose 65+ Yrs IM 8 Influenza Vaccine Tri Adjuvanted 65+ PF IM 04/15 Influenza, Unspecified Formulation 04/14/2023 Family History Medical History Relation Name Comments Healthy Daughter 1 Sana Breast Cancer Daughter 2 Nanette Other Daughter 2 Nanette born w/fatty tu mor on spine, back surgery/problems related to Hypertension Father Hermann Guaman Stroke Father Hermann Guaman Unknown Maternal Grandfather Unknown Maternal Grandmother Hypertension Mother Erlinda Deniz Stroke Mother Erlinda Deniz Glaucoma Other H-Francisco Hypertension Other H-Francisco Unknown Paternal Grandfather Unknown Paternal Grandmother Healthy Son Douglas Colon Cancer Neg Hx Ovarian Cancer Neg Hx Relation Name Status Comments Daughter 1 Sana Alive Daughter 2 Nanette Alive Father Hermann Guaman Maternal Grandfather Maternal Grandmother Mother Erlinda Guaman Other H-Francisco Alive Paternal Grandfather Paternal Grandmother Son Douglas Alive Social History Tobacco Use Types Packs/Day Years Used Date Smoking Tobacco: Never Smokeless Tobacco: Never Tobacco Cessation:Counseling Given: Not Answered Alcohol Use Standard Drinks/Week Comments Yes 1 (1 standard drink = 0.6 oz pur e alcohol) Rarely Comments No Sex and Gender Information Value Date Recorded Sex Assigned at Not on file Legal Sex Female 5:36 AM FOOTWEAR FA[employer]ORY WORKER Gender Identity Not on file Sexual Orientation Not on file Occupation Industry Job Start Date Job End Date Not on file Not on file Not on file Not on file Last Filed Vital Signs Vital Sign Reading Time Taken Comments Blood Pressure 118/76 08/09/2024 10:46 AM [employer] WORKER Pulse 71 08/09/2024 10:46 AM [employer]WEAR [employer] WORKER Temperature 36.4 ??C (97.6 ??F) 08/09/2024 10:[address] Respiratory Rate 15 08/09/2024 10:46 AM [employer]AR [employer] WORKER Oxygen Saturation 97% 08/09/2024 10:46 AM [employer] WORKER Inhaled Oxygen Concentration - - Weight 48.3 kg (106 lb 6.4 oz) 08/09/2024 10:46 AM [employer]AR [employer] WORKER Height 157.5 cm (5' 2 ) 08/09/2024 10:46 AM [employer] WORKER Body Mass Index 19.46 08/09/2024 10:46 AM [employer] WORKER Plan of Treatment Upcoming Encounters Date Type Department Care Team (Late st Contact Info) Description 08/24/2024 4:30 PM [employer]WEAR [employer] WORKER Telephone Check Up [facility] Oncology and Hematology - [place] [address] [facility] [address] [place] [address] Chetan Joel MD [address] [facility] [address] [place] [address] 10/02/2024 10:00 AM CDT Office Visit [facility] [id number] [facility] [address] [place] [address] Ciaran Loaiza MD [address] [facility] [address] [place] [phone] Health Maintenance Due Date Last Done Comments PNEUMOCOCCAL VACCINE 65+ YEA RS (2 of 2 - PPSV23) 09/04/2015 09/04/2014 INFLUENZA VACCINE (#1) 2024 2, 05/07/2021, 03/20/2020, Additional history exists Traditional Medicare (ACO) A nnual Wellness Visit 04/03/2024 04/02/2023 BREAST CANCER SCREENING 08/05/2024 08/05/19 24, 07/29/2022, 06/04/2021, Additional history exists OSTEOPOROSIS SCREENING 04/12/2025 3, 03/20/2022, 04/04/2021, Additional history exists DTAP/TDAP/TD VACCINES (2 - T d or Tdap) 10/07/2033 10/08/2023 COLORECTAL SCREENING Discontinued 09/25/2015, 09/24/2015, 08/19/2015 (Previously completed), Additional history exists Colorectal Cancer Screening Discontinued ZOSTER VACCINE Completed 10/25/2020, 06/27/2020 RSV VACCINE (60+ or ) Completed 07/28/2023 COVID-19 Vaccine Completed 04/25/2024, , 09/15/2020, Additional history exists FIT-DNA Q 3 years Discontinued FIT/FOBT Q 1 year Discontinued Flex Sig/CT Colonography Q 5 years Discontinued Procedures Procedure Name Priority Date/Time Associated Diagnosis Comments MAMMO 3D KATH SCREEN BILAT W OR WO CAD Routine 08/05/2023 9:52 AM [employer]WEAR [employer]ORY WORKER XR DEXA BONE DENSITY AXIAL 1 OR MORE SITES Routine 04/12/2023 9:30 AM CDT Menopause Osteoporosis, unspecified osteoporosis type, unspecified pathological fracture presence from Last 3 Months or Most Recently Relevant to Health Maintenance Results * MAMMO 3D KATH SCREEN BILAT W OR WO CAD (08/05/2023 9:52 AM [employer]WEAR FA[employer]ORY WORKER) Anatomical Region Laterality Modality Breast Bilateral Other us Ciaran Loaiza MD MAMMO ORDERABLES Final Resul t * XR DEXA BONE DENSITY AXIAL 1 OR MORE SITES (04/12/2023 9:30 AM CDT) Anatomical Region Laterality Modality Digital Radiogra phy 04/12/2023 9:30 AM CDT Impressions 04/12/2023 9:35 AM CDT IMPRESSION: This is a summary page. Please refer to the complete detailed report found in the Imaging Section of the [facility] EMR. Osteoporosis. Lumbar Spine: t-Score: ??-0.5 Left Femoral Neck: t-Score: ??-2.2 Left Total Femur: t-Score: ??-1.6 Right Femoral Neck: t-Score: ??-1.9 Right Total Femur: t-Score: ??-1.7 Left Forearm: t-Score: ??-2.8 Statistical change: ?? No significant change in BMD since the prior exam. FRAX FRACTURE RISK ASSESSMENT: ?? (Only valid Between 40-89 Years Of Age) Risk factors: Family history. History of fracture as an adult. ?? 10 Year Probability Of Fracture Major Osteoporotic: 34.6 % Hip: 22.4 % Comparison population: [place], Race: White A major osteoporotic fracture is defined as a fracture of the spine, forearm, hip or shoulder. Definitions: Normal: T-score above -1.0 ?? Osteopenia T-score less than -1.0 and above -2.5 Osteoporosis: T-score <= -2.5 Follow-up Recommendations: ? Patients without high risk factors for osteoporosis ? T-score -1.0 to -1.5 - Consider repeat BMD in 5-10 years ? T-score -1.5 to - 2.0 - Consider repeat BMD in 3-5 years ? T-score -2.0 to - 2.5 - Consider repeat BMD every 2 years ? Patients on treatment for osteoporosis ? 1-2 years after initiation of treatment and every 2 years thereafter [address] Armnod Shay MD DICTATION LOCATION: 1 Narrative 04/12/2023 9:35 AM CDT EXAMINATION: ??BONE DENSITY STUDY (DXA) DATE: 04/12/2023 9:30 AM HISTORY: 78 years Female. Postmenopausal. PROCEDURE: Planar images of the lumbar spine, hip(s) and forearm(s) using a [employer] DEXA scanner for bone mineral density determination (BMD). ?? Prior bone density: 04/04/2021 FINDINGS: ?? Lumbar Spine (L1-L4): t-Score: ??-0.5 ?1.118 g/sq cm Prior: 1.106 g/sq cm ?? Left Femoral Neck: t-Score: ??-2.2 ?0.736 g/sq cm Prior: 0.782 g/sq cm ?? Left Total Femur: t-Score: ??-1.6 Right Femoral Neck: t-Score: ??-1.9 ?0.771 g/sq cm Prior: 0.771 g/sq cm ?? Right Total Femur: t-Score: ??-1.7 Left 33% Radius: t-Score: ??-2.8 ?0.628 g/sq cm Prior: 0.658 g/sq cm ?? INCIDENTAL FINDINGS: ??None. Procedure Note Armond Shay MD - 04/12/2023 EXAMINATION: BONE DENSITY STUDY (DXA) DATE: 04/12/2023 9:30 AM HISTORY: 78 years Female. Postmenopausal. PROCEDURE: Planar images of the lumbar spine, hip(s) and forearm(s) using a [employer] DEXA scanner for bone mineral density determination (BMD). Prior bone density: 04/04/2021 FINDINGS: Lumbar Spine (L1-L4): t-Score: -0.5 1.118 g/sq cm Prior: 1.106 g/sq cm Left Femoral Neck: t-Score: -2.2 0.736 g/sq cm Prior: 0.782 g/sq cm Left Total Femur: t-Score: -1.6 Right Femoral Neck: t-Score: -1.9 0.771 g/sq cm Prior: 0.771 g/sq cm Right Total Femur: t-Score: -1.7 Left 33% Radius: t-Score: -2.8 0.628 g/sq cm Prior: 0.658 g/sq cm INCIDENTAL FINDINGS: None. IMPRESSION: This is a summary page. Please refer to the complete detailed report found in the Imaging Section of the [facility] EMR. Osteoporosis. Lumbar Spine: t-Score: -0.5 Left Femoral Neck: t-Score: -2.2 Left Total Femur: t-Score: -1.6 Right Femoral Neck: t-Score: -1.9 Right Total Femur: t-Score: -1.7 Left Forearm: t-Score: -2.8 Statistical change: No significant change in BMD since the prior exam. FRAX FRACTURE RISK ASSESSMENT: (Only valid Between 40-89 Years Of Age) Risk factors: Family history. History of fracture as an adult. 10 Year Probability Of Fracture Major Osteoporotic: 34.6 % Hip: 22.4 % Comparison population: [place], Race: White A major osteoporotic fracture is defined as a fracture of the spine, forearm, hip or shoulder. Definitions: Normal: T-score above -1.0 Osteopenia T-score less than -1.0 and above -2.5 Osteoporosis: T-score <= -2.5 Follow-up Recommendations: Patients without high risk factors for osteoporosis T-score -1.0 to -1.5 - Consider repeat BMD in 5-10 years T-score -1.5 to - 2.0 - Consider repeat BMD in 3-5 years T-score -2.0 to - 2.5 - Consider repeat BMD every 2 years Patients on treatment for osteoporosis 1-2 years after initiation of treatment and every 2 years thereafter D[address] by Dr[address] Armond Shay MD DICTATION LOCATION: 1 Ciaran Loaiza MD DIAGNOSTIC IMAGING ORDERABLE S Final Result from Last 3 Months or Most Recently Relevant to Health Maintenance Insurance MEDICARE PART A AND B [facility] [employer] MEDICARE PART A AND B [facility] [employer] Care Teams Radiologic Technologist Mammogram Relationship Specialty Start Date End Date Vincent Moses MD [address] [facility] [address] [place] [address] PCP - General 06/26/08
--- OUTSIDE RECORDS SUMMARY | 2024-08-10 23:55 | XMS_ITS | Encounter Summary ---
Author Organization [facility] Address [id number] [place] [address] Care Team Providers Care Holistic Pulser Name Role Phone Vincent Moses MD Primary Care Provider [phone] Reason for Visit * Reason Comments Establish Care Encounter Details Date Type Department Care Team (Late st Contact Info) Description 08/09/2024 10:30 AM COLOR MAKER DYER Office Visit [facility] Oncology and Hematology - [place] [address] [place] [address] [facility] [address] [place] [address] Chetan Joel MD [address] [facility] [address] [place] [address] Chronic anemia (Primary Dx) Social History Tobacco Use Types Packs/Day Years Used Date Smoking Tobacco: Never Smokeless Tobacco: Never Tobacco Cessation:Counseling Given: Not Answered Alcohol Use Standard Drinks/Week Comments Yes 1 (1 standard drink = 0.6 oz pur e alcohol) Rarely Comments No Sex and Gender Information Value Date Recorded Sex Assigned at Not on file Legal Sex Female 5:36 AM COLOR MAKER DYER Gender Identity Not on file Sexual Orientation Not on file Occupation Industry Job Start Date Job End Date Not on file Not on file Not on file Not on file documented as of this encounter Last Filed Vital Signs Vital Sign Reading Time Taken Comments Blood Pressure 118/76 08/09/2024 10:46 AM COLOR MAKER DYER Pulse 71 08/09/2024 10:46 AM COLOR MAKER DYER Temperature 36.4 ??C (97.6 ??F) 08/09/2024 10:[address] Respiratory Rate 15 08/09/2024 10:46 AM COLOR MAKER DYER Oxygen Saturation 97% 08/09/2024 10:46 AM COLOR MAKER DYER Inhaled Oxygen Concentration - - Weight 48.3 kg (106 lb 6.4 oz) 08/09/2024 10:46 AM COLOR MAKER DYER Height 157.5 cm (5' 2 ) 08/09/2024 10:46 AM COLOR MAKER DYER Body Mass Index 19.46 08/09/2024 10:46 AM COLOR MAKER DYER documented in this encounter Progress Notes * Chetan Joel MD - 08/09/2024 11:03 AM CST Hematology-oncology consult Note Requesting Physician Vincent Moses MD Primary Care Physician Vincent Moses MD Problem list Patient Active Problem List Diagnosis Code LMP 1995 DARIA/BSO N95.9 Postmenopausal HRT (hormone replacement therapy) Z79.890 Osteopenia M85.80 Abnormal mammogram of left breast R92.8 Chest pain R07.9 Facial nerve disorder G51.9 Fatigue R53.83 Osteoarthrosis M19.90 Postartificial menopausal syndrome N95.8 Osteoporosis M81.0 Closed fracture of cuboid of left foot S92.212A Impacted cerumen of left ear H61.22 Plantar fasciitis of left foot M72.2 Previous TREATMENT ? Measurable Disease ? Reason for Visit Ariella Guzman is a 79 y.o. female who was referred for consultation for anemia. History of present illness This is a pleasant 79-year-old female who has been remarkably good health other than osteopenia referred to me for anemia. She denies any tiredness and fatigue. Denies any bleeding including melena hematochezia. Denies being a vegetarian. Her weight and appetite stable. Denies any previous stomach surgeries. She is not taking any iron supplements. Her last colonoscopy was less than 5 years ago and was unremarkable. Her labs from March 2024 showed hemoglobin of 10.7. She has no newcomplaints. 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 L. acidophilus/L. rhamnosus (PROBIOTIC ORAL) Take by mouth. CALCIUM CARBONATE ORAL Take by mouth. KRILL OIL ORAL Take by mouth. collagen/biotin/ascorbic acid (COLLAGEN 1500 PLUS C ORAL) Take by mouth. multivitamin with minerals (HAIR,SKIN AND NAILS ORAL) Take by mouth. polyethylene glycol 3350 (Miralax) 17 gram/dose Powder Take by mouth daily. Dissolve in 8 ounces offluid and drink entire liquid alendronate (Fosamax) 70 mg tablet Take 1 Tablet (70 mg) by mouth every 7 days. empty stomach before other meds,with 8oz of water, stay upright 30 min 13 Tablet 3 [DISCONTINUED] prednisoLONE acetate (PRED FORTE) 1 % suspension prednisolone acetate 1 % eye drops,suspension INSTILL 1 DROP INTO RIGHT EYE 4 TIMES DAILY FOR 3 DAYS [DISCONTINUED] polyethylene glycol 3350 (MIRALAX) 17 gram/dose Powder Take 17 Grams by mouth daily Dissolve in 8 ounces of fluid and drink entire liquid . aspirin (JAMEEL) 81 mg Oral Tab Take 81 mg by mouth daily. No current facility-administered medications for this visit. Allergies Allergies Allergen Reactions Sulfa (Sulfonamide Antibiotics) Unknown Erythromycin Unknown MOTHER TOLD HER MYCIN DRUG Sulfasalazine Unknown Mother told her Immunizations: Immunization History Administered Date(s) Administered (AREXVY)(60 YR UP) RSV, RECOMBINANT, PROTEIN SUBUNIT RSVPREF, ADJUVANT RECONSTITUTED, 0.5 ML, PF 07/28/2023 (Pulse 8)(12 YR UP) COVID-19 VACCINE - EMERGENCY USE AUTHORIZATION, MRNA, [id number](PF) 30 MCG/0.3 MLIM SUSP 08/20/2020, 09/15/2020, 04/14/2023 (PREVNAR 13)(6 WKS UP) PNEUMOCOCCAL CONJUGATE (PCV13) 0.5 ML, IM 09/04/2014 (SHINGRIX)(50 YRS UP) ZOSTER VACCINE RECOMBINANT, 0.5 ML, IM 06/27/2020, 10/25/2020 INFLUENZA VACCINE QUADRIVALENT 6 MOS UP IM 05/07/2021, 04/21/2022 INFLUENZA VACCINE QUADRIVALENT ADJ 65 YR UP PF IM 03/20/2020 Influenza Seasonal Unspecified Formulation IM 04/20/2013 Influenza Vaccine High Dose 65+ Yrs IM 04/04/2018 Influenza Vaccine Tri Adjuvanted 65+ PF IM 04/15/2019 Influenza, Unspecified Formulation 04/14/2023 Family History Family History Problem Relation Name Age of Onset Stroke Father Hermann Guaman Hypertension Father Hermann Guaman Hypertension Mother Erlinda Guaman Stroke Mother Erlinda Guaman Unknown Paternal Grandfather Unknown Paternal Grandmother Unknown Maternal Grandfather Unknown Maternal Grandmother Healthy Daughter Sana Healthy Son Douglas Glaucoma Other H-Francisco Hypertension Other H-Francisco Other Daughter Nanette born w/fatty tumor on spine, back surgery/problems related to Breast Cancer Daughter Nanette Colon Cancer Neg Hx Ovarian Cancer Neg Hx Social History Social History Tobacco Use Smoking status: Never Smokeless tobacco: Never Substance Use Topics Alcohol use: Yes Alcohol/week: 1.0 standard drink of alcohol Types: 1 Glasses of wine per week Comment: Rarely Review of Systems Constitutional: Patient did not mention fever; no night sweats; no anorexia; no weight loss; no fatique NEENT: Patient did not mention headache; no change in vision; no change in hearing; no sore throat;no dysphagia Respiratory: Patient did not mention shortness of breath; no pleuritic chest pain; no cough; no hemoptysis Cardiac: Patient did not mention cardiac-like chest pain; no palpitations; no orthopnea; no PND; noDOE Breasts: Patient did not mention tenderness; no masses GI: Patient did not mention abdominal pain; no nausea; no vomiting; no diarrhea; no hematochezia; no melena : Patient did not mention dysuria; no frequency; no hesitancy; no hematuria ORDNANCE EQUIPMENT WORKER: Musculosketetal: Patient did not mention bone pain; no arthralgia; no joint swelling; no myalgia; Skin: Patient did not mention pruritis; no rash; no petechiae; no ecchymoses Endocrine: Patient did not mention polydipsia; no polyuria; no unusual weight gain Neuro: Patient did not mention headache; no change in vision; no sensory changes; no muscle weakness; no confusion; no seizures Psych: Patient did not mention anxiety; no depression; Physical Exam Vitals: As per nursing note Constitutional: Well developed, well nourished, no acute distress, non-toxic appearance Teeth and gum. No signs of infection or swelling. Eyes: PERRL, conjunctiva normal HEENT: Atraumatic, external ears normal, nose normal, oropharynx moist, no pharyngeal exudates. no sinus tenderness Neck- normal range of motion, no tenderness, supple Respiratory: No respiratory distress, normal breath sounds, no rales, no wheezing Cardiovascular: Normal rate, normal rhythm, no murmurs, no gallops, no rubs GI: Soft, nondistended, normal bowel sounds, nontender, no splenomegaly, no hepatomegaly, no mass, no rebound, no guarding : No costovertebral angle tenderness Musculoskeletal: No edema, no tenderness, no deformities. Back- no tenderness Integument: Well hydrated, no rash, Digits and nails inspection normal Lymphatic: No lymphadenopathy noted Neurologic: Alert & oriented x 3, CN 2-12 normal, normal motor function, normal sensory function, no focal deficits noted Psychiatric: Speech and behavior appropriate ? labs No results found for this or any previous visit (from the past 24 hours). Labs from April 11, 2024 showed WBC 4.1 hemoglobin 11.1 platelet 193,000 Pathology ? Imaging & Other Studies Performance Status? Assessment / Plan: ? Normocytic anemia. Patient is a pleasant 79-year-old female who has been in good health except history of osteopenia for which she has been taking alendronate. She denies being tired and fatigue. She denies any bleeding including melena hematochezia. Her weight and appetite stable. Her last colonoscopy was less than 5 years ago and was normal. She has no previous stomach surgeries. I have reviewed the labs that showed mild anemia. I will order the comprehensive workup for anemia that will include CBC with differential, CMP, soluble transferrin receptor, methylmalonic acid level, damien min B12 and folic acid level and iron studies. No need for bone marrow testing. I will see her backin 2 weeks to discuss findings and further recommendations. I have answered all the questions to patient's satisfaction. Osteopenia. Patient is on Fosamax. Thank you very much for allowing me to participate in Ariella Guzman's evaluation and management. Please feel free to contact if I can be of any further assistance in your patient???s care requiring hematology or oncology evaluation. Sincerely, ? ? Chetan Joel M.D. cell TOBACCO COUNSELING She is not a tobacco/nicotine user. Chetan Joel MD ,08/09/2024 1:02 PM ? Total time spent 60 minutes, two third of the total time spent counseling patient [id number]. CC:?Vincent Moses MD R MAKER DYER documented in this encounter Plan of Treatment Upcoming Encounters Date Type Department Care Team (Late st Contact Info) Description 08/24/2024 4:30 PM COLOR MAKER DYER Telephone Check Up [facility] Oncology and Hematology - Joel [address] [facility] [address] [place] [phone] Chetan Joel MD [address] [facility] [address] [place] [address] 10/02/2024 10:00 AM CDT Office Visit [facility] B [facility] [id number] [place] [address] Ciaran Loaiza MD [address] [facility] [address] [place] [address] Scheduled Orders Name Type Priority Associated Diagnoses Orde r Schedule CBC WITHOUT DIFFERENTIAL Lab Stat Chronic anemia Expected: 08/09/2024, Expires: 08/09/2025 COMPREHENSIVE METABOLIC PANEL Lab Stat Chronic anemia Expected: 08/09/2024, Expires: 08/09/2025 FERRITIN Lab Routine Chronic anemia Expected: 08/09/2024, Expires: 08/09/2025 IRON, TIBC, AND PERCENT SATURATION Lab Routine Chronic anemia Expected: 08/09/2024, Expires: 08/09/2025 LACTATE DEHYDROGENASE Lab Routine Chronic anemia Expected: 08/09/2024, Expires: 08/09/2025 METHYLMALONIC ACID Lab Routine Chronic anemia Expected: 08/09/2024, Expires: 08/09/2025 TRANSFERRIN RECEPTOR TFR SOLUBLE Lab Routine Chronic anemia Expected: 08/09/2024, Expires: 08/09/2025 VITAMIN B12 AND FOLATE Lab Routine Chronic anemia Expected: 08/09/2024, Expires: 08/09/2025 documented as of this encounter Visit Diagnoses Diagnosis Chronic anemia- Primary Anemia, unspecified documented in this encounter Care Teams Holistic Pulser Relationship Specialty Start Date End Date Vincent Moses MD [address] [place] [address] [address] [place] [address] PCP - General 06/26/08 documented as of this encounter
[2024-08-12 01:18] LABS: Methylmalonic Acid 114 nmol/L (69-390)
[2024-08-14 14:18] LABS: Soluble Transferrin Receptor 2.53 mg/L (0.76-1.76)
== END 2024-08-09 11:25 | disposition home or self-care (01) ==
LOC: ANHLAB 11:25
PROVIDERS: PCP Internal Medicine; Visit Provider Internal Medicine Hematology & Oncology
DX: D64.9 Anemia, unspecified (principal)
CPT/HCPCS: 36415; 80053; 82607; 82728; 82746; 83540; 83550; 83615; 83921; 84238; 85027

== ENCOUNTER 2024-11-23 10:50 | Outpatient (CLI) | payer MEDICARE, BC, SELFPAY ==
--- OUTSIDE RECORDS SUMMARY | 2024-11-23 11:07 | XMS_ITS | Clinical Summary ---
Author Organization [facility] Address [address] [place] [address] Phone Care Team Providers Care Mixer Pigment Name Role Phone Vincent Moses MD Primary Care Provider [phone] Allergies Active Allergy Reactions Criticality Noted Date Comments Erythromycin Unknown Low 07/10/2009 MOTHER TOLD HER MYCIN DRUG Sulfa (Sulfonamide Antibiotics) Unknown 09/27/2023 Sulfasalazine Unknown Low 12/30/2012 Mother told her Medications aspirin (JAMEEL) 81 mg Oral Tab Take 81 mg by mouth daily. Active MULTIVITAMIN ORAL Take by mouth. Active L. acidophilus/L. rhamnosus (PROBIOTIC ORAL) Take by mouth. Active CALCIUM CARBONATE ORAL Take by mouth. Active KRILL OIL ORAL Take by mouth. Active collagen/biotin/a scorbic acid (COLLAGEN 1500 PLUS C ORAL) Take by mouth. Active multivitamin with minerals (HAIR,SKIN AND NAILS ORAL) Take by mouth. Active polyethylene glycol 3350 (Miralax) 17 gram/dose Powder Take by mouth daily. Dissolve in 8 ounces of fluid and drink entire liquid Active ferrous fumarate (FERRETTS) 325 mg (106 mg iron) Tablet Take 325 mg by mouth. Active nystatin (MYCOSTATIN) 100,000 unit/gram OintmentIndicatio ns:Vulvar itching Apply to affected area 2 times daily. 30 Gram 3 5 Active nystatin-triamcin olone (MYCOLOG) 100,000-0.1 unit/gram-% OintmentIndicatio ns:Chronic vulvitis Apply to affected area 2 times daily. 30 Gram 3 5 Active alendronate (Fosamax) 70 mg tabletIndications :Age-related osteoporosis without current pathological fracture Take 1 Tablet (70 mg) by mouth every 7 days. 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 Osteopenia 08/26/2011 LMP 1996 SYDNIE/BSO 07/10/2009 Overview (07/11/2009): myoma Postmenopausal HRT (hormone replacement therapy) Resolved Problems Problem Noted Date Diagnosed Date Resolved Date History of Cryosurgery of Cervix 07/11/2009 08/31/2012 Cervicitis 08/31/2012 Encounters Date Type Department Care Team Description 11/08/[address] [phone] Ciaran Loaiza MD Age-related osteoporosis without current pathological fracture 11/06/2024 Telephone [facility] Clinical Support [address] [place] [address] Monet Lenz, programming internship Refill 10/18/2024 12:45 PM CDT Telephone Check Up [address] [phone] Ciaran Loaiza MD Osteoporosis with current pathological fracture, unspecified osteoporosis type, sequela (Primary Dx); Chronic vulvitis 10/03/2024 Telephone [facility] Clinical Support [address] [place] [address] Ame Akers RN Question 10/03/2024 Abstract [facility] OBGYN - [place] [address] [facility] [address] [place] [address] Ciaran Loaiza MD 10/02/2024 10:00 AM CDT Office Visit [facility] B [facility] [address] [facility] [address] [address] [address] Ciaran Loaiza MD Chronic vulvitis (Primary Dx); Visit for screening mammogram; Vulvar itching; Encounter for screening mammogram for breast cancer; Screening for osteoporosis; Menopause; Osteoporosis, unspecified osteoporosis type, unspecified pathological fracture presence 09/06/2024 External Device Data STL ABSTRACTION Provider, Abstract from Last 3 Months Immunizations Immunization Administration Dates Next Due (ADACEL/BOOSTRIX)(10 YR UP) TDAP VACCINE, 0.5ML, IM 10/08/2023 (AREXVY)(60 YR UP) RSV, BRENDA MBINANT, PROTEIN SUBUNIT RSVPREF, ADJUVANT RECONSTITUTED, 0.5 ML, PF 07/28/2023 (COMIRNATY)(12 YR UP) COVID- 19 VACCINE, MRNA, SPIKE PROTEIN, LNP, CHATA(PF) 30 MCG/0.3 ML IM SUSP 04/25/2024 (PFIZER)(12 YR UP) COVID-19 VACCINE - EMERGENCY USE AUTHORIZATION, MRNA, [id number](PF) 30 MCG/0.3 ML IM SUSP 04/14/2023,09/15/2020,08/20/2020 (PREVNAR [...] 65+ PF IM 04/15 Influenza, Unspecified Formulation 04/25/2024, Family History Medical History Relation Name Comments [...] on file Legal Sex Female 5:36 AM DIRECTOR OF DISTANCE LEARNING Gender Identity Not on file Sexual Orientation Not on file Occupation Industry Job Start Date Job End Date Not on file Not on file Not on file Not on file Last Filed Vital Signs Vital Sign Reading Time Taken Comments Blood Pressure 98/68 10/02/2024 9:48 AM CDT Pulse 71 08/09/2024 10:46 AM DIRECTOR OF DISTANCE LEARNING Temperature 36.4 C (97.6 F) 08/09/2024 10:46 AM DIRECTOR OF DISTANCE LEARNING Respiratory Rate 15 08/09/2024 10:46 AM DIRECTOR OF DISTANCE LEARNING Oxygen Saturation 97% 08/09/2024 10:46 AM DIRECTOR OF DISTANCE LEARNING Inhaled Oxygen Concentration - - Weight 49 kg (108 lb) 10/02/2024 9:48 AM CDT Height 157.5 cm (5' 2 ) 10/02/2024 9:48 AM CDT Body Mass Index 19.75 10/02/2024 9:48 AM CDT Plan of Treatment Upcoming Encounters Date Type Department Care Team (Late st Contact Info) Description 11/24/2024 11:30 AM CDT Office Visit [facility] Oncology and Hematology - [place] [address] [facility] [address] [place] [address] Chetan Joel MD [address] [facility] [address] [place] [address] 04/18/2025 11:00 AM CDT Appointment [facility] [address] [place] [address] Ciaran Loaiza MD [address] [facility] [address] [place] [place] [address] 10/03/2025 10:00 AM CDT Office Visit [facility] [address] [place] [address] Ciaran Loaiza MD [address] [facility] [address] [facility] [address] [place] [address] Health Maintenance Due Date Last Done Comments INFLUENZA VACCINE (#1) 2024 2, 05/07/2021, 03/20/2020, Additional history exists COVID-19 Vaccine (2023-2 5 season) 2024 04/25/2024, 04/14/2023, 09/15/2020, Additional history exists OSTEOPOROSIS SCREENING 04/12/2025 3, 03/20/2022, 04/04/2021, Additional history exists BREAST CANCER SCREENING 08/18/2025 08/18/19 25, 08/05/2023, 08/05/2023, Additional history exists DTAP/TDAP/TD VACCINES (2 - T d or Tdap) 10/07/2033 10/08/2023 COLORECTAL SCREENING Discontinued 09/26/2015, 09/25/2015, 09/24/2015, Additional history exists Colorectal Cancer Screening Discontinued ZOSTER VACCINE Completed 10/25/2020, 06/27/2020 RSV VACCINE (60+ or ) Completed 07/28/2023 PNEUMOCOCCAL VACCINE 50+ YEARS Completed 10/09/2024 , 09/04/2014 FIT-DNA Q 3 years Discontinued FIT/FOBT Q 1 year Discontinued Flex Sig/CT Colonography Q 5 years Discontinued Procedures Procedure Name Priority Date/Time Associated Diagnosis Comments MAMMO 3D KATH SCREEN BILAT W OR WO CAD Routine 08/05/2023 9:52 AM DIRECTOR OF DISTANCE LEARNING XR DEXA BONE DENSITY AXIAL 1 OR MORE SITES Routine 04/12/2023 9:30 AM CDT Menopause Osteoporosis, unspecified osteoporosis type, unspecified pathological fracture presence from Last 3 Months or Most Recently Relevant to Health Maintenance Results * MAMMO 3D KATH SCREEN BILAT W OR WO CAD (08/05/2023 9:52 AM DIRECTOR OF DISTANCE LEARNING) Anatomical Region Laterality Modality Breast Bilateral Mammography us Ciaran Loaiza MD MAMMO ORDERABLES Final Resul t * XR DEXA BONE DENSITY AXIAL 1 OR MORE SITES (04/12/2023 9:30 AM CDT) Anatomical Region Laterality Modality Digital Radiogra phy 04/12/2023 9:30 AM CDT Impressions 04/12/2023 9:35 AM CDT IMPRESSION: This is a summary page. Please refer to the complete detailed report found in the Imaging Section of the [facility] EMR. Osteoporosis. Lumbar Spine: t-Score: -0.5 Left [...] by Dr. Armond Shay MD DICTATION LOCATION: 04/12/2023 9:35 AM CDT EXAMINATION: BONE DENSITY STUDY (DXA) DATE: 04/12/2023 9:30 AM HISTORY: 78 years Female. Postmenopausal. PROCEDURE: Planar images of the lumbar spine, hip(s) and forearm(s) using a [employer] DEXA scanner for bone mineral density determination [...] Prior: 0.658 g/sq cm INCIDENTAL FINDINGS: None. Procedure Note Armond Shay MD - 04/12/2023 EXAMINATION: BONE DENSITY STUDY (DXA) DATE: 04/12/2023 9:30 AM HISTORY: 78 years Female. Postmenopausal. PROCEDURE: Planar images of the lumbar spine, hip(s) and forearm(s) using a [employer] DEXA scanner for bone mineral density determination [...] found in the Imaging Section of the [facility] EMR. Osteoporosis. Lumbar Spine: t-Score: -0.5 Left [...] Maintenance Insurance MEDICARE PART A AND B [facility] MEDICARE PART A AND B [facility] [employer] Care Teams Mixer Pigment Relationship Specialty Start Date End Date Vincent Moses MD [address] [facility] [address] [place] [phone] PCP - General 06/26/08
--- OUTSIDE RECORDS SUMMARY | 2024-11-23 11:07 | XMS_ITS | Clinical Summary ---
Author Organization [facility] Address [address] [place] [address] Care Team Providers Care [employer] Supervisor Name Role Phone Vincent Moses MD Primary Care Provider [phone] Source Comments [facility],non-owned Affiliates and Associated Physician Practices is amultiple site organization consisting of ambulatory clinics and hospital sitesin [place], [place], [place] and [place]. This disclosure is being madepursuant to the Care Everywhere program and may not contain all information available regarding this patient. Last updated 18.[facility] Allergies Active Allergy Reactions Criticality Noted Date Comments Sulfa Drugs Unknown 12/30/2012 Unknown of drug reaction. Medications * Be aware that medications may not be up to date on this document. Alwaysverify current medications with the patient. hydrocodone-acet aminophen (LORTAB) 7.5-500 MG tablet Take 1 Tab [...] 0.6 oz pur e alcohol) social drinker Comments Unknown Sex and Gender Information Value Date Recorded Sex Assigned at Not on file Legal Sex Female 6:06 PM CDT Gender Identity Not on file Sexual Orientation Not on file Last Filed Vital Signs Vital Sign Reading Time Taken Comments Blood Pressure 127/75 12/30/2012 9:07 PM CDT Pulse 85 12/30/2012 8:42 PM CDT Temperature 37 C (98.6 F) 12/30/2012 6:13 PM CDT Respiratory Rate 25 [...] Last Done Comments BONE DENSITY TESTING 1945 HEPATITIS C SCREENING 01/02/1964 DTAP/TDAP/TD VACCINES (1 - Tdap) 1965 PNEUMOCOCCAL VACCINE 50+ (1 of 1 - PCV) 01/07/1996 ZOSTER VACCINE (1 of 2) 01/07/1996 Respiratory Syncytial Virus (RSV) Vaccine Pt: or over 60 yrs (1 - 1-dose 75+ series) 2021 COVID-19 VACCINE ( - 2023-2 5 season) 2024 DEPRESSION SCREENING 07/19/2024 INFLUENZA VACCINE (Season Ended) 2025 HEPATITIS B VACCINE Aged Out No longe r eligible based on patient's age to complete this topic HIB VACCINE Aged Out No longer eligi ble based on patient's age to complete this topic HPV VACCINE Aged Out No longer eligi ble based on patient's age to complete this topic MENINGOCOCCAL (Group B) VACC INE SHARED DECISION-MAKING Aged Out No longer eligibl e based on patient's age to complete this topic MENINGOCOCCAL GROUPS A/C/Y/W VACCINE Aged Out No longer eligible b ased on patient's age to complete this topic Insurance COMMERCIAL GENERIC MEDICARE [facility] [employer] Care Teams [employer] Supervisor Relationship Specialty Start Date End Date Vincent Moses MD PCP - General Internal Medicine 12/30/12
[2024-11-23 11:09] LABS: Basophils Percent Auto 0.6 % (0.2-1.2); Eosinophils Percent Auto 1.3 % (0-4.4); Hematocrit 34.7 % (37.0-47.0); Hemoglobin 11.5 g/dL (12.0-15.0); Immature Granulocyte Absolute 0.01 K/mm3 (0.00-0.031); Immature Granulocyte Percent A 0.3 % (0-0.5); Lymphocytes Absolute Auto 1.33 K/mm3 (0.9-3.2); Lymphocytes Percent Auto 41.6 % (18.3-44.2); Mean Corpuscular HGB Conc 33.1 g/dl (32-36); Mean Corpuscular Hemoglobin 31.3 pg (26-34); Mean Corpuscular Volume 94.3 fl (80-100); Monocytes Absolute Auto 0.4 K/mm3 (0.1-0.6); Monocytes Percent Auto 11.3 % (2.6-8.5); Neutrophils Absolute Auto 1.4 K/mm3 (1.3-6.7); Neutrophils Percent Auto 44.9 % (45.5-73.1); Platelet Count Result 187 k/mm3 (150-375); Red Blood Count 3.68 M/mm3 (4.2-5.4); Red Cell Distribution Width 13.5 % (11.5-14.5); White Blood Count 3.2 K/mm3 (4.5-10.0)
[2024-11-23 12:27] LABS: Anion Gap 9 mmol/L (4-12); Blood Urea Nitrogen 28 mg/dL (7-17); Calcium 9.7 mg/dL (8.4-10.2); Carbon Dioxide 29 mmol/L (22-30); Chloride 102 mmol/L (98-107); Estimated Glomerular Filt Rate > 60; Glucose 88 mg/dL (65-110); Potassium 4.1 mmol/L (3.4-5.0); Sodium 140 mmol/L (137-145)
[2024-11-23 12:34] LABS: Iron 103 ug/dL (37-170)
[2024-11-23 12:44] LABS: Percent Iron Saturation 37 % (20-50)
== END 2024-11-23 10:51 | disposition home or self-care (01) ==
LOC: ANHLAB 10:52
PROVIDERS: PCP Internal Medicine; Visit Provider Internal Medicine Hematology & Oncology
DX: D64.9 Anemia, unspecified (principal)
CPT/HCPCS: 36415; 80048; 82728; 83540; 83550; 85025